=== PATIENT | male | born 1960 | race Two or more races ===

== ENCOUNTER 2020-12-08 13:47 | Outpatient (CLI) | payer OTHER | END 2020-12-08 13:48 | disposition home or self-care (01) | LOC: PPH VACUNA 13:47 | DX: Z23 Encounter for immunization (principal) ==

== ENCOUNTER 2021-03-15 08:24 | Outpatient (CLI) | payer OTHER | END 2021-03-15 08:28 | disposition home or self-care (01) | LOC: NUCLEAR 08:24 | DX: C22.0 Liver cell carcinoma (principal) | CPT/HCPCS: 78815; A9552 ==

== ENCOUNTER 2021-11-20 07:28 | Outpatient (CLI) | payer OTHER | END 2021-11-20 07:30 | disposition home or self-care (01) | LOC: NUCLEAR 07:28 | DX: C22.0 Liver cell carcinoma (principal) ==

== ENCOUNTER 2023-12-15 08:25 | Outpatient (CLI) | payer OTHER | END 2023-12-15 08:26 | disposition home or self-care (01) | LOC: NUCLEAR 08:25 | DX: C22.0 Liver cell carcinoma (principal) ==

== ENCOUNTER 2024-12-14 07:20 | Outpatient (CLI) | payer OTHER | END 2024-12-14 07:21 | disposition home or self-care (01) | LOC: NUCLEAR 07:20 | DX: C22.0 Liver cell carcinoma (principal) ==